=== PATIENT | female | born 1960 | race Caucasian/White ===

== ENCOUNTER 2020-05-05 11:55 | Emergency (ER) | payer BC ==
--- NOTE | 2020-05-05 12:52 | EDM.PDOC ---
Scribed by Taya Lindsey 05/05/20 1216 for Silvestre Ahuja MD ED HPI GENERAL MEDICAL PROBLEM - General Chief Complaint: Genitourinary Problem Stated Complaint: UTI Time Seen by Provider: 05/05/20 12:11 Source of Information: Reports: Patient, RN, RN Notes Reviewed History Limitations: Reports: No Limitations - History of Present Illness INITIAL COMMENTS - FREE TEXT/NARRATIVE: Pt presents to ER from home by POV with c/o worsening pain and burning with urination since yesterday. Denies fever or chills. Pt states symptoms are the same as past UTI's. She reports Hx of recurrent UTI's with about 4 infections earlier this year. Denies back or flank pain. Onset: Gradual Duration: Constant, Getting Worse Location: Reports: Other (Urinary) Quality: Reports: Burning Severity: Moderate Improves with: Reports: None Worsens with: Reports: Other Associated Symptoms: Reports: No Other Symptoms Past Medical History Genitourinary History: Reports: UTI, Recurrent Endocrine/Metabolic History: Reports: Obesity/BMI 30+ Social & Family History - Family History Family Medical History: Noncontributory ED ROS GENERAL - Review of Systems Review Of Systems: Comprehensive ROS is negative, except as noted in HPI. ED EXAM, RENAL/ - Physical Exam Exam: See Below Exam Limited By: No Limitations General Appearance: Alert, No Apparent Distress, Obese Throat/Mouth: Normal Voice, No Airway Compromise Head: Atraumatic, Normocephalic Respiratory/Chest: No Respiratory Distress, Lungs Clear Cardiovascular: Regular Rate, Rhythm GI/Abdominal: Soft, Non-Tender, Other (Severely obese abdomen, benign to exam) Back Exam: Normal Inspection. No: CVA Tenderness (L), CVA Tenderness (R) Neurological: Alert, Oriented, No Motor/Sensory Deficits Psychiatric: Normal Mood Skin Exam: Warm, Dry, Intact, Normal Color, No Rash Course - Orders/Labs/Meds Orders: Active Orders 24 hr Category Date Time Status CULTURE URINE [RM] Stat Lab 05/05/20 12:07 Received Labs: Laboratory Tests 05/05/20 Range/Units 12:07 Urine Color Yellow (YELLOW) Urine Appearance Cloudy (CLEAR) Urine pH 5.5 (5.0-9.0) Ur Specific [place] >= 1.030 (1.005-1.030) Urine Protein Negative (NEGATIVE) Urine Glucose (UA) Negative (NEGATIVE) Urine Ketones Negative (NEGATIVE) Urine Occult Blood Moderate H (NEGATIVE) Urine Nitrite Positive H (NEGATIVE) Urine Bilirubin Negative (NEGATIVE) Urine Urobilinogen 0.2 (0.2-1.0) mg/dL Ur Leukocyte Esterase Moderate H (NEGATIVE) Urine RBC 10-20 H /HPF Urine WBC >100 H (0-5/HPF) /HPF Ur Epithelial Cells Few (NOT SEEN) /HPF Amorphous Sediment Few (NOT SEEN) /HPF Urine Bacteria Many H (0-FEW/HPF) /HPF Urine Mucus Rare (NOT SEEN) /LPF Departure - Departure Time of Disposition: 12:51 Disposition: Home, Self-Care 01 Condition: Good Clinical Impression: UTI, Urinary tract infectious disease - Discharge Information *PRESCRIPTION DRUG MONITORING PROGRAM REVIEWED*: Not Applicable *COPY OF PRESCRIPTION DRUG MONITORING REPORT IN PATIENT RICCI: Not Applicable Instructions: Urinary Tract Infection, Adult Forms: ED Department Discharge Additional Instructions: Rx: Cipro 500mg Drink plenty of water. Follow up in clinic in 7 to 10 days for urine recheck. - My Orders Last 24 Hours: My Active Orders 05/05/20 12:07 CULTURE URINE [RM] Stat - Assessment/Plan Last 24 Hours: My Active Orders 05/05/20 12:07 CULTURE URINE [RM] Stat I have read and agree with the documentation that has been completed regarding this visit. By signing this record, I attest that the documentation was completed in my physical presence and is an accurate record of the encounter.
== END 2020-05-05 12:53 | disposition home or self-care (01) ==
LOC: DL.ED 11:55
DX: N39.0 Urinary tract infection, site not specified (principal); E66.9 Obesity, unspecified; Z68.44 Body mass index [BMI] 60.0-69.9, adult
CPT/HCPCS: 81001; 87086; 87088; 87186; 99283